=== PATIENT | male | born 2000 | race Two or more races ===

== ENCOUNTER 2022-06-19 01:58 | Emergency (ER) | payer BC, MEDICAID ==
[~2022-06-19] VITALS: Ht 172.7 cm; Wt 120.0 kg
[2022-06-19 02:19] VITALS: BP 106/71
== END 2022-06-19 05:56 | disposition left against medical advice (07) ==
LOC: ER 01:58
DX: R06.02 Shortness of breath (principal); Z53.29 Procedure and treatment not carried out because of patient's decision for other reasons
CPT/HCPCS: 71045

== ENCOUNTER 2022-09-23 19:43 | Emergency (ER) | payer SELFPAY ==
[~2022-09-23] VITALS: Ht 175.3 cm; Wt 55.0 kg
[2022-09-23 20:47] VITALS: BP 113/70
[2022-09-23] MEDS ORDERED: HYDROcodone-ACET 10/325MG TAB PO ONE (22:00)
[2022-09-23] MEDS ORDERED: HYDR-4902 PO (23:05)
[2022-09-23] MEDS ORDERED: IBUP800T26 PO (23:05)
[2022-09-24] MEDS ORDERED: KETOROLAC TROMETH 60MG/2ML VIAL IM ONE (00:30)
== END 2022-09-24 00:32 | disposition home or self-care (01) ==
LOC: ER 19:43
DX: S02.2XXA Fracture of nasal bones, initial encounter for closed fracture (principal); S16.1XXA Strain of muscle, fascia and tendon at neck level, initial encounter; S00.83XA Contusion of other part of head, initial encounter; Y04.2XXA Assault by strike against or bumped into by another person, initial encounter; Y93.89 Activity, other specified; Y92.89 Other specified places as the place of occurrence of the external cause; Y99.8 Other external cause status
CPT/HCPCS: 70450; 70486; 72125

== ENCOUNTER 2023-09-10 17:23 | Emergency (ER) | payer MEDICAID, OTHER ==
[~2023-09-10] VITALS: Ht 175.3 cm; Wt 58.1 kg
[~2023-09-10 17:23] MED LIST: HYDR-4902 PO; IBUP-1455 PO
[2023-09-10 18:38] VITALS: BP 105/69; PULSE 82; RESP 16; TEMP 98.2; O2SAT 98
[2023-09-10] MEDS ORDERED: ALBUAER3 IN (19:11)
== END 2023-09-10 19:16 | disposition home or self-care (01) ==
LOC: ER 17:23
DX: J45.909 Unspecified asthma, uncomplicated (principal); Z76.0 Encounter for issue of repeat prescription

== ENCOUNTER 2023-11-17 16:54 | Emergency (ER) | payer MEDICAID, OTHER ==
[~2023-11-17] VITALS: Ht 175.3 cm; Wt 55.0 kg
[~2023-11-17 16:54] MED LIST changes: +ALBUAER3 IN
[2023-11-17 17:25] VITALS: BP 126/67; PULSE 87; RESP 16; TEMP 98.7; O2SAT 96
[2023-11-17] MEDS ORDERED: ALBUAER3 IN (17:49)
[2023-11-17] MEDS ORDERED: BENZ200C64 PO (17:49)
[2023-11-17] MEDS ORDERED: AZIT-43 PO (17:49)
== END 2023-11-17 17:55 | disposition home or self-care (01) ==
LOC: ER 16:54
DX: J40 Bronchitis, not specified as acute or chronic (principal); F12.10 Cannabis abuse, uncomplicated; Z76.0 Encounter for issue of repeat prescription

== ENCOUNTER 2023-12-11 18:00 | Emergency (ER) | payer OTHER ==
[~2023-12-11] VITALS: Ht 175.3 cm; Wt 54.7 kg
[~2023-12-11 18:00] MED LIST changes: +AZIT-43 PO; +BENZ200C64 PO
[2023-12-11 18:36] VITALS: BP 112/68; PULSE 74; RESP 16; O2SAT 97
== END 2023-12-11 22:59 | disposition left against medical advice (07) ==
LOC: ER 18:00
DX: J45.909 Unspecified asthma, uncomplicated (principal); Z76.0 Encounter for issue of repeat prescription; Z53.21 Procedure and treatment not carried out due to patient leaving prior to being seen by health care provider

== ENCOUNTER 2024-05-29 17:53 | Emergency (ER) | payer OTHER ==
[~2024-05-29 17:53] MED LIST changes: +ALBU108A5 IN; +PRED20TA2 PO
== END 2024-05-29 20:14 | disposition left against medical advice (07) ==
LOC: ER 17:53
DX: Z76.0 Encounter for issue of repeat prescription (principal); Z53.21 Procedure and treatment not carried out due to patient leaving prior to being seen by health care provider

== ENCOUNTER 2024-07-26 00:35 | Emergency (ER) | payer OTHER ==
[~2024-07-26] VITALS: Ht 177.8 cm; Wt 58.5 kg
[2024-07-26 00:54] VITALS: BP 102/74; PULSE 90; RESP 16; O2SAT 97
== END 2024-07-26 04:20 | disposition left against medical advice (07) ==
LOC: ER 00:35
DX: F41.9 Anxiety disorder, unspecified (principal); Z76.0 Encounter for issue of repeat prescription; Z53.21 Procedure and treatment not carried out due to patient leaving prior to being seen by health care provider

== ENCOUNTER 2024-08-29 13:39 | Emergency (ER) | payer MEDICAID, OTHER ==
[~2024-08-29] VITALS: Ht 175.3 cm; Wt 58.4 kg
[2024-08-29 14:21] VITALS: BP 124/73; PULSE 74; RESP 18; TEMP 97.9; O2SAT 99
[2024-08-29] MEDS ORDERED: ALBUAER3 IN (14:25)
[2024-08-29] MEDS ORDERED: MOME1AER8 INH (14:26)
--- NOTE | 2024-08-29 14:26 | ED.PDOC ---
History of Present Illness HPI Comments A 24 YEAR OLD MALE PRESENTS TO THE ED WITH COMPLAINT OF MEDICATION REFILL. PATIENT STATES SHE HAS A HISTORY OF ASTHMA AND USES DULERA AND AN ALBUTEROL INHALER, BUT RECENTLY RAN OUT OF HIS MEDICATION AND WOULD LIKE A REFILL OF THESE 2 MEDICATIONS. PATIENT DENIES FEVER, CHILLS, SHORTNESS OF BREATH, CHEST PAIN, ABDOMINAL PAIN, NAUSEA, VOMITING, HEADACHE, OR OTHER COMPLAINTS. NO OTHER SYMPTOMS OR MODIFYING FACTORS AT THIS TIME. PATIENT IS ALERT, ORIENTED X 4, AND HAS STEADY GAIT. Chief Complaint: Asthma Time Seen by MD: 13:46 Primary Care Provider: NONE Reviewed Notes: Nurses Notes, Medications, Allergies Allergies: Coded Allergies: Ibuprofen (Verified Allergy, Unknown, 12/11/23) Home Meds Active Scripts Mometasone Furoate-Formoterol (Dulera) 1 Aer Aer, 2 PUFF INH BID, #13 GRAMS Prov:MARLIN SIMPSON 08/29/24 Albuterol Sulfate (VENTOLIN MDI) 90 Mcg Ih, 2 PUFF IN Q6HPRN, #1 INH 0 Refills Prov:MARLIN SIMPSON 08/29/24 Prednisone (Prednisone) 20 Mg Tab, 40 MG PO DAILY for 5 Days, #10 MG Prov:TREVA FIGUEROA [facility] 01/04/24 Albuterol Sulfate (Albuterol Sulfate Hfa) 108 Mcg/Act Aer, 108 MCG IN Q4HPRN PRN, #1 AER Prov:TREVA FIGUEROA [facility] 01/04/24 Albuterol Sulfate (VENTOLIN MDI) 90 Mcg Ih, 90 MCG IN Q4HPRN PRN for 7 Days, #1 INH Prov:PEARL BORGES TOXICOLOGIST 11/17/23 Benzonatate (Benzonatate) 200 Mg Cap, 1 CAP PO TID PRN for 10 Days, #30 CAP Prov:PEARL BORGES TOXICOLOGIST 24 Azithromycin (Azithromycin) 250 Mg Tab, 250 MG PO DAILY MDD 500 for 5 Days, #6 TAB 0 Refills 2 TABLETS ORALLY ON DAY ONE, THEN 1 TABLET ORALLY DAILY FOR 4 DAYS Prov:PEARL BORGES TOXICOLOGIST 11/17/23 Hydrocodone-Acetaminophen (Hydrocodone Bitartrate/AC 5-325 mg) 1 Tab Tab, 1 TAB PO QIDP, #20 TAB Prov:[facility] [facility] 09/23/22 Ibuprofen Micronized (Ibuprofen) 800 Mg Tab, 800 MG PO TID, #30 TAB Prov:[facility] PAC 09/23/22 Information Source: Patient Mode of Arrival: Ambulatory Severity: None Timing: Days Duration: Since onset Prehospital treatment: None Medication Refill: For: Other (MEDICATION REFILL FOR ASTHMA MEDICATION) Past Medical History PAST MEDICAL HISTORY: Asthma Surgical History: Denies all surgeries Family History Family History: Reviewed,noncontributory to illness Social History Smoker: Non-Smoker Alcohol: Denies ETOH Use Drugs: Marijuana Lives In: Home Constitutional: denies: chills, diaphoresis, fatigue, fever, malaise, sweats, weakness, others EENTM: denies: blurred vision, double vision, ear bleeding, ear discharge, ear drainage, ear pain, ear ringing, eye pain, eye redness, hearing loss, mouth pain, mouth swelling, nasal discharge, nose bleeding, nose congestion, nose pain, photophobia, tearing, throat pain, throat swelling, voice changes, others Respiratory: denies: cough, hemoptysis, orthopnea, SOB at rest, shortness of breath, SOB with excertion, stridor, wheezing, others Cardiovascular: denies: chest pain, dizzy spells, diaphoresis, Dyspnea on exertion, edema, irregular heart beat, left arm pain, lightheadedness, palpitations, PND, syncope, others Gastrointestinal: denies: abdomen distended, abdominal pain, blood streaked bowels, constipated, diarrhea, dysphagia, difficulty swallowing, hematemesis, melena, nausea, poor appetite, poor fluid intake, rectal bleeding, rectal pain, vomiting, others Genitourinary: denies: burning, dysuria, flank pain, frequency, hematuria, incontinence, penile discharge, penile sore, pain, testicle pain, testicle swelling, urgency, others Neurological: denies: dizziness, fainting, headache, left sided numbness, left sided weakness, numbness, paresthesia, pre-existing deficit, right sided numbness, right sided weakness, seizure, speech problems, tingling, tremors, weakness, others Musculoskeletal: denies: back pain, gout, joint pain, joint swelling, muscle pain, muscle stiffness, neck pain, others Integumetry: denies: bruises, change in color, change in hair/nails, dryness, laceration, lesions, lumps, rash, wounds, others Allergic/Immunocompromised: denies: Difficulty Healing, Frequent Infections, Hives, Itching, others Hematologic/Lymphatic: denies: anemia, blood clots, easy bleeding, easy bruising, swollen glands, others Endocrine: denies: excessive hunger, excessive sweating, excessive thirst, excessive urination, flushing, intolerance to cold, intolerance to heat, unexp lained weight gain, unexplained weight loss, others Psychiatric: denies: anxiety, bipolar disorder, depression, hopeless, panic disorder, schizophrenia, sleepless, suicidal, others All Other Systems: Reviewed and Negative Physical Exam General Appearance: No Apparent Distress, Normal HEENT: Normal ENT Inspection, PERRL/EOMI, Pharynx Normal, TMs Normal Neck: Full Range of Motion, Non-Tender, Normal, Normal Inspection Respiratory: Chest Non-Tender, Lungs Clear, No Accessory Muscle Use, No Resp iratory Distress, Normal Breath Sounds Cardiovascular: No Edema, No JVD, No Murmur, No Gallop, Normal Peripheral Pulses, Regular Rate/Rhythm Breast Exam: Deferred Gastrointestinal: No Organomegaly, Non Tender, No Pulsatile Mass, Normal Bowel Sounds, Soft Genitalia: Deferred Pelvic: Deferred Rectal: Deferred Extremities: No calf tenderness, Normal capillary refill, Normal inspection, Normal range of motion, Non-tender, No pedal edema Musculoskeletal : Apperance: Normal Neurologic: Alert, mass spectroscopist II-XII nml as Tested, No Motor Deficits, Normal Affect, Normal Mood, No Sensory Deficits Cerebellar Function: Normal Reflexes: Normal Skin: Dry, Normal Color, Warm Peripheral Pulses: 2+ carotid (R), 2+ carotid (L) Lymphatic: No Adenopathy Was a procedure done? Was a procedure done?: No Differential Dx Considerations may include: MEDICATION REFILL, HISTORY OF ASTHMA X-Ray, Labs, Meds, VS Vital Signs Date Time Temp Pulse Resp B/P (MAP) Pulse Ox O2 Delivery O2 Flow Rate FiO2 08/29/24 14:21 74 18 99 Room Air 08/29/24 14:21 97.9 74 18 124/73 (90) 99 97.9 08/29/24 13:44 97.9 74 18 124/73 (90) 99 Time of 1ST Reevaluation: 14:30 Reevaluation 1ST: Improved Patient Education/Counseling: Diagnosis, Treatment, Need For Follow Up Family Education/Counseling: Diagnosis, Treatment, Need For Follow Up Medical Screening: No EMC Exist At This Time Departure 1 Departure Time of Disposition: 14:40 Impression: Primary Impression: Encounter for medication refill Additional Impression: History of asthma Disposition: HOME / SELF CARE / HOMELESS Condition: Stable Additional Instructions: FOLLOW-UP WITH PCP IN 1 TO 2 DAYS. TAKE MEDICATIONS PRESCRIBED. RETURN TO ED FOR ANY NEW OR WORSENING SYMPTOMS. e-Prescriptions Mometasone Furoate-Formoterol (Dulera) 1 Aer Aer 2 PUFF INH BID, #13 GRAMS Prov: MARLIN SIMPSON 08/29/24 Albuterol Sulfate (VENTOLIN MDI) 90 Mcg Ih 2 PUFF IN Q6HPRN, #1 INH 0 Refills Prov: MARLIN SIMPSON 08/29/24 Discharged With: Self Critical Care Note Critical Care Time?: No Stability Stability form required: No I personally scribed for MARLIN SIMPSON ([email or web address]) on 08/29/24 at 14:26. Electronically submitted by Ender Mae ([email or web address]). MARLIN SIMPSON Aug 29, 2024 14:26
== END 2024-08-29 14:44 | disposition home or self-care (01) ==
LOC: ER 13:39
DX: J45.909 Unspecified asthma, uncomplicated (principal); F12.90 Cannabis use, unspecified, uncomplicated; Z76.0 Encounter for issue of repeat prescription; Z79.899 Other long term (current) drug therapy

== ENCOUNTER 2024-10-21 12:38 | Emergency (ER) | payer SELFPAY ==
[~2024-10-21] VITALS: Ht 177.8 cm; Wt 57.0 kg
[~2024-10-21 12:38] MED LIST changes: +MOME1AER8 INH
[2024-10-21] MEDS ORDERED: AMOX875T4 PO (19:50)
[2024-10-21] MEDS ORDERED: IBUP-1456 PO (19:50)
--- NOTE | 2024-10-21 19:57 | ED.PDOC ---
Eye-HPI HPI Comments 24-year-old male presents to ER with complaints of bilateral earache pain x3 weeks. Patient reports he has been experiencing bilateral earache pain along with cough and congestion x three weeks. He rates his current bilateral earache pain a 5/10. Denies use of medications for current symptoms. Patient presents to ER ambulatory on arrival, with steady gait, in no distress, with vitals stable. Denies fever, ear drainage, headache, dizziness, nausea/vomiting, shortness of breath, chest pain or any further symptoms/complaints Chief Complaint: Earache Time Seen by MD: 18:45 Primary Care Provider: UNKNOWN Reviewed Notes: Nurses Notes, Medications, Allergies Allergies: Coded Allergies: Ibuprofen (Verified Allergy, Unknown, 12/11/23) Home Meds Active Scripts Ibuprofen (Ibuprofen) 800 Mg Tab, 1 TAB PO TID PRN, #30 TAB 0 Refills Prov:CAROL HERNANDEZ 10/21/24 Amoxicillin & Pot Clavulanate (Amoxicillin/Potassium Cla) 875 Mg Tab, 1 TAB PO BID for 7 Days, #14 TAB 0 Refills Prov:CAROL HERNANDEZ 10/21/24 Mometasone Furoate-Formoterol (Dulera) 1 Aer Aer, 2 PUFF INH BID, #13 GRAMS Prov:MARLIN SIMPSON 08/29/24 Albuterol Sulfate (VENTOLIN MDI) 90 Mcg Ih, 2 PUFF IN Q6HPRN, #1 INH 0 Refills Prov:MARLIN SIMPSON 08/29/24 Prednisone (Prednisone) 20 Mg Tab, 40 MG PO DAILY for 5 Days, #10 MG Prov:TREVA FIGUEROA PAC 01/04/24 Albuterol Sulfate (Albuterol Sulfate Hfa) 108 Mcg/Act Aer, 108 MCG IN Q4HPRN PRN, #1 AER Prov:TREVA FIGUEROA PAC 01/04/24 Albuterol Sulfate (VENTOLIN MDI) 90 Mcg Ih, 90 MCG IN Q4HPRN PRN for 7 Days, #1 INH Prov:PEARL BORGES DIRECTOR [employer] SCIENCES 11/17/23 Benzonatate (Benzonatate) 200 Mg Cap, 1 CAP PO TID PRN for 10 Days, #30 CAP Prov:PEARL BORGES DIRECTOR [employer] 11/17/23 Azithromycin (Azithromycin) 250 Mg Tab, 250 MG PO DAILY MDD 500 for 5 Days, #6 TAB 0 Refills 2 TABLETS ORALLY ON DAY ONE, THEN 1 TABLET ORALLY DAILY FOR 4 DAYS Prov:PEARL BORGES DIRECTOR [employer] 11/17/23 Hydrocodone-Acetaminophen (Hydrocodone Bitartrate/AC 5-325 mg) 1 Tab Tab, 1 TAB PO QIDP, #20 TAB Prov:[facility] 09/23/22 Ibuprofen Micronized (Ibuprofen) 800 Mg Tab, 800 MG PO TID, #30 TAB Prov:[facility] PAC 09/23/22 Information Source: Patient Mode of Arrival: Ambulatory Past Medical History PAST MEDICAL HISTORY: Anxiety, Asthma, Depression Surgical History: Denies all surgeries Family History Family History: Unknown Social History Smoker: Non-Smoker Alcohol: Denies ETOH Use Drugs: Cocaine, Marijuana Lives In: Home Constitutional: denies: chills, diaphoresis, fatigue, fever, malaise, sweats, weakness, others EENTM: reports: others ( STATED IN HPI) Respiratory: reports: others ( STATED IN HPI) Cardiovascular: denies: chest pain, dizzy spells, diaphoresis, Dyspnea on exertion, edema, irregular heart beat, left arm pain, lightheadedness, palpitations, PND, syncope, others Gastrointestinal: denies: abdomen distended, abdominal pain, blood streaked bowels, constipated, diarrhea, dysphagia, difficulty swallowing, hematemesis, melena, nausea, poor appetite, poor fluid intake, rectal bleeding, rectal pain, vomiting, others Genitourinary: denies: burning, dysuria, flank pain, frequency, hematuria, incontinence, penile discharge, penile sore, pain, testicle pain, testicle swelling, urgency, others Neurological: denies: dizziness, fainting, headache, left sided numbness, left sided weakness, numbness, paresthesia, pre-existing deficit, right sided numbness, right sided weakness, seizure, speech problems, tingling, tremors, weakness, others Musculoskeletal: denies: back pain, gout, joint pain, joint swelling, muscle pain, muscle stiffness, neck pain, others Integumetry: denies: bruises, change in color, change in hair/nails, dryness, laceration, lesions, lumps, rash, wounds, others Allergic/Immunocompromised: denies: Difficulty Healing, Frequent Infections, Hives, Itching, others Hematologic/Lymphatic: denies: anemia, blood clots, easy bleeding, easy bruising, swollen glands, others Endocrine: denies: excessive hunger, excessive sweating, excessive thirst, excessive urination, flushing, intolerance to cold, intolerance to heat, unexplained weight gain, unexplained weight loss, others Psychiatric: denies: anxiety, bipolar disorder, depression, hopeless, panic disorder, schizophrenia, sleepless, suicidal, others Physical Exam General Appearance: No Apparent Distress HEENT: PERRL/EOMI, Pharynx Normal, Other (MILD ERYTHEMA/BULGING NOTED TO BILATERAL TMS. REMAINDER BILATERAL EAR EXAM-UNREMARKABLE) Neck: Full Range of Motion, Non-Tender, Normal Respiratory: Chest Non-Tender, Lungs Clear, No Accessory Muscle Use, No Respiratory Distress, Normal Breath Sounds Cardiovascular: No Murmur, No Gallop, Regular Rate/Rhythm Breast Exam: Deferred Gastrointestinal: NOT DONE Genitalia: Deferred Pelvic: Deferred Rectal: Deferred Extremities: Normal capillary refill, Normal range of motion Neurologic: Alert, clinical nursing assistant II-XII nml as Tested, No Motor Deficits, Normal Affect, Normal Mood, No Sensory Deficits Cerebellar Function: Normal Reflexes: Normal Skin: Dry, Normal Color, Warm Peripheral Pulses: 2+ Radial (R), 2+ Radial (L), 2+ Brachial (R), 2+ Brachial (L) Lymphatic: No Adenopathy Was a procedure done? Was a procedure done?: No Sedation Sedation?: No EENT DIFF Eye: N/A Ear: Cerumen Impaction, Foreign Body, Otitis Externa X-Ray, Labs, Meds, VS Vital Signs Date Time Temp Pulse Resp B/P (MAP) Pulse Ox O2 Delivery O2 Flow Rate FiO2 10/21/24 17:25 98.3 90 12 114/68 (83) 97 98.3 10/21/24 12:58 99.0 96 18 122/68 (86) 95 ROCEPHIN 1 G IM ORDERED ADVISED TO DRINK PLENTY OF FLUIDS COCAINE/CANNABIS CESSATION DISCUSSED AND ADVISED ADVISED TO FOLLOW UP WITH PCP IN 1-2 DAYS PATIENT VERBALIZED UNDERSTANDING AND AGREEABLE WITH CURRENT PLAN OF CARE ADVISED TO RETURN TO ER IMMEDIATELY IF SYMPTOMS WORSEN Time of 1ST Reevaluation: 19:22 Reevaluation 1ST: N/A Patient Education/Counseling: Diagnosis, Treatment, Prognosis, Need For Follow Up Family Education/Counseling: No Family Present Departure 1 Departure Time of Disposition: 19:42 Impression: Primary Impression: Otitis media of both ears Qualified Codes: H66.93 - Otitis media, unspecified, bilateral Additional Impression: Upper respiratory infection Qualified Codes: J06.9 - Acute upper respiratory infection, unspecified Disposition: HOME / SELF CARE / HOMELESS Condition: Stable e-Prescriptions Ibuprofen (Ibuprofen) 800 Mg Tab 1 TAB PO TID PRN, #30 TAB 0 Refills Prov: CAROL HERNANDEZ 10/21/24 Amoxicillin & Pot Clavulanate (Amoxicillin/Potassium Cla) 875 Mg Tab 1 TAB PO BID for 7 Days, #14 TAB 0 Refills Prov: CAROL HERNANDEZ 10/21/24 Discharged With: Self Critical Care Note Critical Care Time?: No Stability Stability form required: No Heart Score Heart Score: Heart Score Response (Comments) Value History N/A 0 EKG N/A 0 Age N/A 0 Risk Factors N/A 0 Troponin N/A 0 Total 0 CAROL HERNANDEZ Oct 21, 2024 19:57
[2024-10-21] MEDS: cefTRIAXone SOD 1,000 MG VL IM ONE (20:15)
[2024-10-21] MEDS: LIDOCAINE 1% HCL (LOCAL ANESTH.) INJ 20ML MDV ID ONE (20:17)
[2024-10-21 20:34] VITALS: BP 114/76; PULSE 86; RESP 16; TEMP 97.9; O2SAT 97
== END 2024-10-21 20:34 | disposition home or self-care (01) ==
LOC: ER 12:38
DX: H66.93 Otitis media, unspecified, bilateral (principal); J06.9 Acute upper respiratory infection, unspecified; J45.909 Unspecified asthma, uncomplicated; F41.9 Anxiety disorder, unspecified; F32.A Depression, unspecified; Z88.6 Allergy status to analgesic agent
CPT/HCPCS: 96372; 99283; J0696; J2003

== ENCOUNTER 2024-11-16 18:06 | Emergency (ER) | payer SELFPAY ==
[~2024-11-16] VITALS: Ht 177.8 cm; Wt 57.0 kg
[~2024-11-16 18:06] MED LIST changes: +AMOX875T4 PO; +IBUP-1456 PO
[2024-11-16 22:46] VITALS: BP 112/65; TEMP 98
[2024-11-16 22:59] VITALS: PULSE 52; RESP 18; O2SAT 96
--- NOTE | 2024-11-16 23:00 | ED.PDOC ---
SOB-HPI HPI Comments This is a 24-year-old male chief complaint shortness of breath. PT STATES HE H AD AN ASTHMA FLARE UP TODAY, SOB, WHEEZING AND COUGH STATES 'OUT OF DULERA" SMALL AMT OF PHLEGM, LUNGS CLEAR AT THIS TIME, NO WHEEZING. Denies difficulty breathing, fever, or chills Chief Complaint: Shortness of Breath Time Seen by MD: 21:58 Primary Care Provider: NONE Reviewed notes: Nurses Notes, Medications, Allergies Information Source: Patient Mode of Arrival: Ambulatory Past Medical History PAST MEDICAL HISTORY: Anxiety, Asthma, Depression Surgical History: Denies all surgeries Family History Family History: Unknown Social History Smoker: Non-Smoker Alcohol: Denies ETOH Use Drugs: Cocaine, Marijuana Lives In: Home Constitutional: denies: chills, diaphoresis, fatigue, fever, malaise, sweats, weakness, others EENTM: denies: blurred vision, double vision, ear bleeding, ear discharge, ear drainage, ear pain, ear ringing, eye pain, eye redness, hearing loss, mouth pain, mouth swelling, nasal discharge, nose bleeding, nose congestion, nose pain, photophobia, tearing, throat pain, throat swelling, voice changes, others Respiratory: reports: shortness of breath, wheezing; denies: cough, hemoptysis, orthopnea, SOB at rest, SOB with excertion, stridor, others Cardiovascular: denies: chest pain, dizzy spells, diaphoresis, Dyspnea on exertion, edema, irregular heart beat, left arm pain, lightheadedness, palpitations, PND, syncope, others Gastrointestinal: denies: abdomen distended, abdominal pain, blood streaked bowels, constipated, diarrhea, dysphagia, difficulty swallowing, hematemesis, melena, nausea, poor appetite, poor fluid intake, rectal bleeding, rectal pain, vomiting, others Genitourinary: denies: burning, dysuria, flank pain, frequency, hematuria, incontinence, penile discharge, penile sore, pain, testicle pain, testicle swelling, urgency, others Neurological: denies: dizziness, fainting, headache, left sided numbness, left sided weakness, numbness, paresthesia, pre-existing deficit, right sided numbness, right sided weakness, seizure, speech problems, tingling, tremors, weakness, others Musculoskeletal: denies: back pain, gout, joint pain, joint swelling, muscle pain, muscle stiffness, neck pain, others Integumetry: denies: bruises, change in color, change in hair/nails, dryness, laceration, lesions, lumps, rash, wounds, others Allergic/Immunocompromised: denies: Difficulty Healing, Frequent Infections, Hives, Itching, others Hematologic/Lymphatic: denies: anemia, blood clots, easy bleeding, easy bruising, swollen glands, others Endocrine: denies: excessive hunger, excessive sweating, excessive thirst, excessive urination, flushing, intolerance to cold, intolerance to heat, unexplained weight gain, unexplained weight loss, others Psychiatric: denies: anxiety, bipolar disorder, depression, hopeless, panic disorder, schizophrenia, sleepless, suicidal, others Physical Exam General Appearance: No Apparent Distress, Normal HEENT: Normal ENT Inspection, Pharynx Normal, TMs Normal Neck: Full Range of Motion, Non-Tender Respiratory: Chest Non-Tender, Lungs Clear, No Accessory Muscle Use, No Respiratory Distress, Normal Breath Sounds Cardiovascular: No Edema, No JVD, No Murmur, No Gallop, Normal Peripheral Pulses, Regular Rate/Rhythm Breast Exam: Deferred Gastrointestinal: No Organomegaly, Non Tender, No Pulsatile Mass, Normal Bowel Sounds, Soft Genitalia: Deferred Pelvic: Deferred Rectal: Deferred Extremities: Normal capillary refill, Normal inspection, Normal range of motion, Non-tender, No pedal edema Musculoskeletal : Apperance: Normal Neurologic: Alert, shredder operator II-XII nml as Tested, No Motor Deficits, Normal Affect, Normal Mood, No Sensory Deficits Cerebellar Function: Normal Reflexes: Normal Skin: Dry, Normal Color, Warm Lymphatic: No Adenopathy Was a procedure done? Was a procedure done?: No Differential Dx Differential Diagnosis: Asthma, Bronchitis, Pneumonia X-Ray, Labs, Meds, VS Vital Signs Date Time Temp Pulse Resp B/P (MAP) Pulse Ox O2 Delivery O2 Flow Rate FiO2 11/16/24 22:59 52 18 96 Room Air 11/16/24 22:46 98.0 80 14 112/65 (81) 97 98.0 11/16/24 18:41 18 96 Room Air* 0 21 11/16/24 18:20 98.1 2 18 115/61 (79) 96 X-Ray, Labs, Meds, VS Comment Refill of Dulera sent to pharmacy. Azithromycin prescribing hold advised to start in 2 days if symptoms persist. Follow up with his PCP in 2-3 days as necessary increase fluids with electrolytes [id number] Tylenol or Motrin as needed for fever per labeled dosing instructions ER return precautions given patient agrees with discharge plan of care. Time of 1ST Reevaluation: 23:00 Reevaluation 1ST: Improved Patient Education/Counseling: Diagnosis, Treatment, Prognosis, Need For Follow Up Family Education/Counseling: No Family Present Departure 1 Departure Time of Disposition: 23:18 Impression: Primary Impression: Acute asthma exacerbation Qualified Codes: J45.901 - Unspecified asthma with (acute) exacerbation Disposition: HOME / SELF CARE / HOMELESS Condition: Stable e-Prescriptions Mometasone Furoate-Formoterol (Dulera) 1 Aer Aer 2 PUFF INH BID for 30 Days, #13 GRAMS Prov: SARAN COX 11/16/24 Azithromycin (Azithromycin) 250 Mg Tab 250 MG PO DAILY MDD 500 for 5 Days, #6 TAB 0 Refills 2 TABLETS ORALLY ON DAY ONE, THEN 1 TABLET ORALLY DAILY FOR 4 DAYS Prov: SARAN COX 11/16/24 Discharged With: Self Critical Care Note Critical Care Time?: No Stability Stability form required: No Heart Score Heart Score: Heart Score Response (Comments) Value History N/A 0 EKG N/A 0 Age <45 0 Risk Factors N/A 0 Troponin N/A 0 Total 0 SARAN COX Nov 16, 2024 23:00
[2024-11-16] MEDS ORDERED: MOME1AER3 INH (23:26)
[2024-11-16] MEDS ORDERED: AZIT-43 PO (23:26)
== END 2024-11-17 | disposition home or self-care (01) ==
LOC: ER 18:08
DX: J45.901 Unspecified asthma with (acute) exacerbation (principal); F41.9 Anxiety disorder, unspecified; F32.A Depression, unspecified

== ENCOUNTER 2025-02-11 17:57 | Emergency (ER) | payer MEDICAID, OTHER ==
[~2025-02-11] VITALS: Ht 177.8 cm; Wt 57.0 kg
[~2025-02-11 17:57] MED LIST changes: +MOME1AER3 INH
[2025-02-11] MEDS ORDERED: ALBU108A5 IN (18:14)
--- NOTE | 2025-02-11 18:14 | ED.PDOC ---
SOB-HPI HPI Comments This is a 24-year-old asthmatic male presents in the ED for medication refill. Patient reports history of asthma currently released from longterm and does not have his medications. Currently asking refill for albuterol and Dulera. Denies any symptoms at this time denies wheezing, chest pain, shortness breath, fever or chills. Time Seen by MD: 18:07 Primary Care Provider: NONE Reviewed notes: Nurses Notes, Medications, Allergies Information Source: Patient Past Medical History PAST MEDICAL HISTORY: Anxiety, Asthma, Depression Surgical History: Denies all surgeries Family History Family History: Unknown Social History Smoker: Non-Smoker Alcohol: Denies ETOH Use Drugs: Cocaine, Marijuana Lives In: Home Constitutional: denies: chills, diaphoresis, fatigue, fever, malaise, sweats, weakness, others EENTM: denies: blurred vision, double vision, ear bleeding, ear discharge, ear drainage, ear pain, ear ringing, eye pain, eye redness, hearing loss, mouth pain, mouth swelling, nasal discharge, nose bleeding, nose congestion, nose pain, photophobia, tearing, throat pain, throat swelling, voice changes, others Respiratory: denies: cough, hemoptysis, orthopnea, SOB at rest, shortness of breath, SOB with excertion, stridor, wheezing, others Cardiovascular: denies: chest pain, dizzy spells, diaphoresis, Dyspnea on exertion, edema, irregular heart beat, left arm pain, lightheadedness, palpitations, PND, syncope, others Gastrointestinal: denies: abdomen distended, abdominal pain, blood streaked bowels, constipated, diarrhea, dysphagia, difficulty swallowing, hematemesis, melena, nausea, poor appetite, poor fluid intake, rectal bleeding, rectal pain, vomiting, others Genitourinary: denies: burning, dysuria, flank pain, frequency, hematuria, incontinence, penile discharge, penile sore, pain, testicle pain, testicle swelling, urgency, others Neurological: denies: dizziness, fainting, headache, left sided numbness, left sided weakness, numbness, paresthesia, pre-existing deficit, right sided numbness, right sided weakness, seizure, speech problems, tingling, tremors, weakness, others Musculoskeletal: denies: back pain, gout, joint pain, joint swelling, muscle pain, muscle stiffness, neck pain, others Integumetry: denies: bruises, change in color, change in hair/nails, dryness, laceration, lesions, lumps, rash, wounds, others Allergic/Immunocompromised: denies: Difficulty Healing, Frequent Infections, Hives, Itching, others Hematologic/Lymphatic: denies: anemia, blood clots, easy bleeding, easy bruising, swollen glands, others Endocrine: denies: excessive hunger, excessive sweating, excessive thirst, excessive urination, flushing, intolerance to cold, intolerance to heat, unexplained weight gain, unexplained weight loss, others Psychiatric: denies: anxiety, bipolar disorder, depression, hopeless, panic disorder, schizophrenia, sleepless, suicidal, others Physical Exam General Appearance: No Apparent Distress, Normal HEENT: Normal ENT Inspection, Pharynx Normal, TMs Normal Neck: Full Range of Motion, Non-Tender Respiratory: Chest Non-Tender, Lungs Clear, No Accessory Muscle Use, No Respira tory Distress, Normal Breath Sounds Cardiovascular: No Edema, No JVD, No Murmur, No Gallop, Normal Peripheral Pulses, Regular Rate/Rhythm Breast Exam: Deferred Gastrointestinal: No Organomegaly, Non Tender, No Pulsatile Mass, Normal Bowel Sounds, Soft Genitalia: Deferred Pelvic: Deferred Rectal: Deferred Extremities: Normal capillary refill, Normal inspection, Normal range of motion, Non-tender, No pedal edema Musculoskeletal : Apperance: Normal Neurologic: Alert, senior game advisor II-XII nml as Tested, No Motor Deficits, Normal Affect, Normal Mood, No Sensory Deficits Cerebellar Function: Normal Reflexes: Normal Skin: Dry, Normal Color, Warm Lymphatic: No Adenopathy Was a procedure done? Was a procedure done?: No Differential Dx Differential Diagnosis: Asthma, Bronchitis X-Ray, Labs, Meds, VS Comment Patient was medications script to the pharmacy on file. Advised him to follow up with the PCP for further refills. ER return precautions given patient indicates Time of 1ST Reevaluation: 18:11 Reevaluation 1ST: Improved Patient Education/Counseling: Diagnosis, Treatment, Prognosis, Need For Follow Up Family Education/Counseling: No Family Present Departure 1 Departure Time of Disposition: 18:12 Impression: Primary Impression: Encounter for medication refill Disposition: 01 HOME / SELF CARE / HOMELESS Condition: Stable e-Prescriptions Mometasone Furoate-Formoterol (Dulera) 1 Aer Aer 2 PUFF INH BID for 30 Days, #1 INHALER Prov: SARAN COX [employer]IGNMENT SPECIALIST 02/11/25 Albuterol Sulfate (Albuterol Sulfate Hfa) 108 Mcg/Act Aer 108 MCG IN Q4HPRN PRN, #1 AER Prov: KENNYSARAN [employer] WHE[employer] ALIGNMENT SPECIALIST 02/11/25 Discharged With: Self Critical Care Note Critical Care Time?: No Stability Stability form required: No Heart Score Heart Score: Heart Score Response (Comments) Value History N/A 0 EKG N/A 0 Age <45 0 Risk Factors N/A 0 Troponin N/A 0 Total 0 KENNYSARAN [employer] WHE[employer] ALIGNMENT SPECIALIST Feb 11, 2025 18:14
[2025-02-11 19:30] VITALS: BP 110/71; PULSE 88; RESP 16; TEMP 98.5; O2SAT 97
== END 2025-02-11 19:43 | disposition home or self-care (01) ==
LOC: ER 18:04
DX: J45.909 Unspecified asthma, uncomplicated (principal); F41.9 Anxiety disorder, unspecified; F32.A Depression, unspecified; Z76.0 Encounter for issue of repeat prescription

== ENCOUNTER 2025-02-28 19:06 | Emergency (ER) | payer MEDICAID ==
[~2025-02-28] VITALS: Ht 175.3 cm; Wt 55.7 kg
[2025-02-28 22:37] VITALS: BP 102/56; PULSE 83; RESP 16; TEMP 98.1; O2SAT 98
[2025-02-28] MEDS ORDERED: BUSP5TAB51 PO (22:40)
--- NOTE | 2025-02-28 22:40 | ED.PDOC ---
Psychiatric HPI Comments Pt presents to the ER due to medication refill. Pt reports he "ran out" of his Buspar x4 days ago. Pt states he is feeling anxious. Pt denies SI/HI, V/A hallucinations. Chief Complaint: Anxiety Time Seen by MD: 19:20 Primary Care Provider: NONE Reviewed Notes: Nurses Notes, Medications, Allergies Information Source: Patient Mode of Arrival: Ambulatory Past Medical History PAST MEDICAL HISTORY: Anxiety, Asthma, Depression Surgical History: Denies all surgeries Family History Family History: Unknown Social History Smoker: Non-Smoker Alcohol: Denies ETOH Use Drugs: Cocaine, Marijuana Lives In: Home Constitutional: denies: chills, diaphoresis, fatigue, fever, malaise, sweats, weakness, others EENTM: denies: blurred vision, double vision, ear bleeding, ear discharge, ear drainage, ear pain, ear ringing, eye pain, eye redness, hearing loss, mouth pain, mouth swelling, nasal discharge, nose bleeding, nose congestion, nose pain, photophobia, tearing, throat pain, throat swelling, voice changes, others Respiratory: denies: cough, hemoptysis, orthopnea, SOB at rest, shortness of breath, SOB with excertion, stridor, wheezing, others Cardiovascular: denies: chest pain, dizzy spells, diaphoresis, Dyspnea on exertion, edema, irregular heart beat, left arm pain, lightheadedness, palpitations, PND, syncope, others Gastrointestinal: denies: abdomen distended, abdominal pain, blood streaked bowels, constipated, diarrhea, dysphagia, difficulty swallowing, hematemesis, melena, nausea, poor appetite, poor fluid intake, rectal bleeding, rectal pain, vomiting, others Genitourinary: denies: burning, dysuria, flank pain, frequency, hematuria, incontinence, penile discharge, penile sore, pain, testicle pain, testicle swelling, urgency, others Neurological: denies: dizziness, fainting, headache, left sided numbness, left sided weakness, numbness, paresthesia, pre-existing deficit, right sided num bness, right sided weakness, seizure, speech problems, tingling, tremors, weakness, others Musculoskeletal: denies: back pain, gout, joint pain, joint swelling, muscle pain, muscle stiffness, neck pain, others Integumetry: denies: bruises, change in color, change in hair/nails, dryness, laceration, lesions, lumps, rash, wounds, others Allergic/Immunocompromised: denies: Difficulty Healing, Frequent Infections, Hives, Itching, others Hematologic/Lymphatic: denies: anemia, blood clots, easy bleeding, easy bruising, swollen glands, others Endocrine: denies: excessive hunger, excessive sweating, excessive thirst, excessive urination, flushing, intolerance to cold, intolerance to heat, unexplained weight gain, unexplained weight loss, others Psychiatric: denies: anxiety, bipolar disorder, depression, hopeless, panic disorder, schizophrenia, sleepless, suicidal, others Physical Exam General Appearance: No Apparent Distress, Normal HEENT: Pharynx Normal Neck: Full Range of Motion, Non-Tender Respiratory: Lungs Clear, No Respiratory Distress, Normal Breath Sounds Cardiovascular: No Edema, No JVD, No Murmur, No Gallop, Normal Peripheral Pulses, Regular Rate/Rhythm Breast Exam: Deferred Gastrointestinal: No Organomegaly, Non Tender, No Pulsatile Mass, Normal Bowel Sounds, Soft Genitalia: Deferred Pelvic: Deferred Rectal: Deferred Extremities: Normal capillary refill, Normal inspection, Normal range of motion, Non-tender, No pedal edema Musculoskeletal : Apperance: Normal Neurologic: Alert, director of accounts receivable II-XII nml as Tested, No Motor Deficits, Normal Affect, Normal Mood, No Sensory Deficits Cerebellar Function: Normal Reflexes: Normal Skin: Dry, Normal Color, Warm Lymphatic: No Adenopathy Was a procedure done? Was a procedure done?: No Psych Differential Dx Psych. Differential Dx: Anxiety, Panic Disorder OD Differential Dx: Depression X-Ray, Labs, Meds, VS Vital Signs Date Time Temp Pulse Resp B/P (MAP) Pulse Ox O2 Delivery O2 Flow Rate FiO2 02/28/25 22:37 98.1 83 16 102/56 (71) 98 98.1 02/28/25 22:37 83 16 98 Room Air 02/28/25 19:23 97.4 83 16 117/82 (94) 96 97.4 X-Ray, Labs, Meds, VS Comment PATIENT IS MEDICATION REFILLED BASED ON PROVIDED PRESCRIPTION. SCRIPT BUSPAR 5 MG TWICE DAILY ADVISED TO TAKE MEDICATIONS PRESCRIBED SIDE EFFECTS DISCUSSED. FUTURE REFILLS TO BE REFILLED BY HIS PRIMARY CARE PATIENT INDICATED UNDERSTANDING AND AGREES WITH DISCHARGE PLAN OF CARE RETURN PRECAUTIONS GIVEN Time of 1ST Reevaluation: 21:30 Reevaluation 1ST: Unchanged Time of 2ND Reevaluation: 22:30 Reevaluation 2ND: Improved Patient Education/Counseling: Diagnosis, Treatment, Prognosis, Need For Follow Up Family Education/Counseling: No Family Present Departure 1 Departure Time of Disposition: 22:37 Impression: Primary Impression: Encounter for medication refill Additional Impression: Anxiety Disposition: 01 HOME / SELF CARE / HOMELESS Condition: Stable e-Prescriptions Buspirone Hcl (Buspirone Hcl) 5 Mg Tab 1 TAB PO BID PRN for 10 Days, #20 TAB Prov: SARAN COX 02/28/25 Discharged With: Self Critical Care Note Critical Care Time?: No Stability Stability form required: SARAN Amador February 28, 2025 22:40
== END 2025-02-28 23:02 | disposition home or self-care (01) ==
LOC: ER 19:06
DX: F41.9 Anxiety disorder, unspecified (principal); J45.909 Unspecified asthma, uncomplicated; Z76.0 Encounter for issue of repeat prescription

== ENCOUNTER 2025-04-24 13:31 | Emergency (ER) | payer MEDICAID, OTHER ==
[~2025-04-24] VITALS: Ht 177.8 cm; Wt 54.7 kg
--- NOTE | 2025-04-24 13:42 | ED.PDOC ---
HPI (NEURO) HPI Comments A 24 YEAR OLD MALE PRESENTS TO THE ED WITH COMPLAINT OF HEADACHE. PATIENT STATES HE HAS BEEN EXPERIENCING A GENERALIZED HEADACHE FOR THE PAST 3 DAYS. PATIENT NOTES HE HAS BEEN UNDER STRESS RECENTLY. PATIENT RATES THE SEVERITY OF HIS PAIN A 6/10 AT THIS TIME. PATIENT DENIES VISION CHANGES, SLURRED SPEECH, ONE-SIDED WEAKNESS, FACIAL DROOP, FEVER, CHILLS, SHORTNESS OF BREATH, CHEST PAIN, ABDOMINAL PAIN, NAUSEA, VOMITING, OR OTHER COMPLAINTS. NO OTHER SYMPTOMS OR MODIFYING FACTORS AT THIS TIME. PATIENT IS ALERT, ORIENTED X 4, AND HAS STEADY GAIT. Chief Complaint: Headache Time Seen by MD: 13:34 Primary Care Provider: NONE Reviewed Notes: Nurses Notes, Medications, Allergies Information Source: Patient Mode of Arrival: Ambulatory Severity: Moderate Headache Severity: Moderate Timing: Days Duration: Since onset, Days Prehospital treatment: None Headache Quality: Aching Headache Location: Generalized Onset: At rest Circumstances: Recent stress Symptoms: Other (HEADACHE) History of: None Modifying factors: Nothing Associated Signs and Symptoms: Headache Past Medical History PAST MEDICAL HISTORY: Anxiety, Asthma, Depression Surgical History: Denies all surgeries Family History Family History: Reviewed,noncontributory to illness Social History Smoker: Non-Smoker Alcohol: Denies ETOH Use Drugs: Cocaine, Marijuana Lives In: Home Constitutional: denies: chills, diaphoresis, fatigue, fever, malaise, sweats, weakness, others EENTM: reports: ear ringing, nose congestion; denies: blurred vision, double vision, ear bleeding, ear discharge, ear drainage, ear pain, eye pain, eye redness, hearing loss, mouth pain, mouth swelling, nasal discharge, nose bleeding, nose pain, photophobia, tearing, throat pain, throat swelling, voice changes, others Respiratory: denies: cough, hemoptysis, orthopnea, SOB at rest, shortness of breath, SOB with excertion, stridor, wheezing, others Cardiovascular: denies: chest pain, dizzy spells, diaphoresis, Dyspnea on exertion, edema, irregular heart beat, left arm pain, lightheadedness, palpita tions, PND, syncope, others Gastrointestinal: denies: abdomen distended, abdominal pain, blood streaked ghislaine wels, constipated, diarrhea, dysphagia, difficulty swallowing, hematemesis, melena, nausea, poor appetite, poor fluid intake, rectal bleeding, rectal pain, vomiting, others Genitourinary: denies: burning, dysuria, flank pain, frequency, hematuria, incontinence, penile discharge, penile sore, pain, testicle pain, testicle swelling, urgency, others Neurological: reports: headache; denies: dizziness, fainting, left sided numbness, left sided weakness, numbness, paresthesia, pre-existing deficit, right sided numbness, right sided weakness, seizure, speech problems, tingling, tremors, weakness, others Musculoskeletal: denies: back pain, gout, joint pain, joint swelling, muscle pain, muscle stiffness, neck pain, others Integumetry: denies: bruises, change in color, change in hair/nails, dryness, laceration, lesions, lumps, rash, wounds, others Allergic/Immunocompromised: denies: Difficulty Healing, Frequent Infections, Hives, Itching, others Hematologic/Lymphatic: denies: anemia, blood clots, easy bleeding, easy bruising, swollen glands, others Endocrine: denies: excessive hunger, excessive sweating, excessive thirst, excessive urination, flushing, intolerance to cold, intolerance to heat, unexplained weight gain, unexplained weight loss, others Psychiatric: denies: anxiety, bipolar disorder, depression, hopeless, panic dis order, schizophrenia, sleepless, suicidal, others All Other Systems: Reviewed and Negative Physical Exam General Appearance: No Apparent Distress, Normal HEENT: PERRL/EOMI, Pharynx Normal, Sinuses (TENDERNESS MAXILLARY SINUSES WITH POST NASAL DRIP. ), TM Abnormal (R) (DULL AND MILD EFFUSION OF RIGHT EAR CANAL. ) Neck: Full Range of Motion, Non-Tender, Normal, Normal Inspection Respiratory: Chest Non-Tender, Lungs Clear, No Accessory Muscle Use, No Respiratory Distress, Normal Breath Sounds Cardiovascular: No Edema, No JVD, No Murmur, No Gallop, Normal Peripheral Pulses, Regular Rate/Rhythm Breast Exam: Deferred Gastrointestinal: No Organomegaly, Non Tender, No Pulsatile Mass, Normal Bowel Sounds, Soft Genitalia: Deferred Pelvic: Deferred Rectal: Deferred Extremities: No calf tenderness, Normal capillary refill, Normal inspection, Normal range of motion, Non-tender, No pedal edema Musculoskeletal : Apperance: Normal Neurologic: Alert, police commissioner II-XII nml as Tested, No Motor Deficits, Normal Affect, Normal Mood, No Sensory Deficits Cerebellar Function: Normal Reflexes: Normal Skin: Dry, Normal Color, Warm Peripheral Pulses: 2+ carotid (R), 2+ carotid (L) Lymphatic: No Adenopathy Was a procedure done? Was a procedure done?: No Differential Diagnosis (SZ) Seizure: N/A General Weakness: N/A Headache: Cluster, Migraine, Intracerebral Hemorrhage, Mass Lesion, Sinusitis X-Ray, Labs, Meds, VS Vital Signs Date Time Temp Pulse Resp B/P (MAP) Pulse Ox O2 Delivery O2 Flow Rate FiO2 04/24/25 14:59 98.1 62 18 107/62 (77) 98 98.1 04/24/25 14:59 62 18 98 Room Air 04/24/25 13:37 98.2 96 16 106/67 (80) 96 98.2 EXAM: CT HEAD WITHOUT CONTRAST INDICATION: HEADACHE TECHNIQUE: CT of the head without intravenous contrast. Radiation Dose Information: CT Dose: CTDI volume is 56.04 mGy. Dose-length product is 992.03 mGy*cm The dose indicators for CT are the volume Computed Tomography (CT) Dose Index (CTDIvol) and the Dose Length Product (DLP), and are measured in units of mGy and mGy-cm, respectively. These indicators are not patient dose, but values generated from the CT scanner acquisition factors. The report includes radiation exposure data for exposures received during this examination. COMPARISON: None FINDINGS: There is no evidence of acute intracranial hemorrhage, extra-axial collection, mass effect, midline shift, herniation or hydrocephalus. The ventricles, sulci and cisterns are age appropriate. The atkinson-white differentiation is intact. Patchy periventricular and subcortical white matter hypoattenuation is nonspec ific but may be related to small vessel ischemic disease. Opacified maxillary ethmoid frontal and sphenoid sinuses bilaterally consistent with pansinusitis. The mastoid air cells are clear. The surrounding soft tissues and osseous structures are unremarkable. IMPRESSION: 1. No acute intracranial abnormality. 2. Pansinusitis ATED BY: BLACK AGUILAR Jr., DO DICTATED DATE/TIME: 04/24/251427 SIGNED BY: BLACK AGUILAR Jr., SIGNED DATE/TIME: 04/24/251427 CC: X-Ray, Labs, Meds, VS Comment EXTERNAL MEDICAL RECORDS REVIEWED: [NONE] INDEPENDENT HISTORIANS: [NONE] SOCIAL DETERMINANTS OF HEALTH: [NONE] LABS ORDERED: NONE REVIEWED AND INTERPRETED RESULTS: NONE IMAGING ORDERED: CT BRAIN TREATMENTS ORDERED: NONE PROCEDURES PERFORMED: NONE CRITICAL CARE TIME: NONE I HAVE DISCUSSED THE PATIENT WITH THE ATTENDING PHYSICIAN DR. GIBBS AND HE AGREES WITH THE PATIENT'S PLAN OF CARE AND DISPOSITION. BASED ON HISTORY OF PRESENT ILLNESS, AND PHYSICAL EXAM, PATIENT WILL BE DISCHARGED HOME. DISCUSSED PLAN FOR DISCHARGE HOME WITH RX [AUGMENTIN AND PREDNISONE]. MEDICATION WARNINGS GIVEN. SHARED DECISION MAKING: PATIENT INSTRUCTED TO FOLLOW UP WITH PRIMARY CARE PROVIDER IN 1-2 DAYS FOR RE-EVALUATION OF SYMPTOMS. PATIENT VERBALIZES UNDERSTANDING TO RETURN TO ED FOR NEW OR WORSENING SYMPTOMS OR IF FOLLOW UP WITH PCP CANNOT BE OBTAINED. PATIENT FEELS COMFORTABLE GOING HOME AT THIS TIME. ALL QUESTIONS ADDRESSED AT TIME OF DISCHARGE. Images Reviewed?: Images reviewed and evaluated by me Time of 1ST Reevaluation: 15:00 Reevaluation 1ST: Improved Patient Education/Counseling: Diagnosis, Treatment, Need For Follow Up Family Education/Counseling: Diagnosis, Treatment, Need For Follow Up Medical Screening: No EMC Exist At This Time Departure 1 Departure Time of Disposition: 15:00 Impression: Primary Impression: Acute pansinusitis Qualified Codes: J01.40 - Acute pansinusitis, unspecified Additional Impression: Sinus headache Disposition: 01 HOME / SELF CARE / HOMELESS Condition: Stable Additional Instructions: FOLLOW-UP WITH PCP IN 1 TO 2 DAYS. TAKE MEDICATIONS PRESCRIBED. RETURN TO ED FOR ANY NEW OR WORSENING SYMPTOMS. e-Prescriptions Naproxen (Naproxen) 500 Mg Tab 500 MG PO BID, #30 TAB Prov: MARLIN SIMPSON 04/24/25 Methylprednisolone (Medrol Dosepak) 4 Mg Van 4 MG PO UD, #21 TAB UAD Prov: MARLIN SIMPSON 04/24/25 Amoxicillin & Pot Clavulanate (AUGMENTIN TABLET) 875 Mg Tb 875 MG PO BID, #28 TAB Prov: MARLIN SIMPSON 04/24/25 Discharged With: Self Critical Care Note Critical Care Time?: No Stability Stability form required: No I personally scribed for MARLIN SIMPSON ([email or web address]) on 04/24/25 at 13:42. Electronically submitted by Ender Mae ([email or web address]). I personally scribed for MARLIN SIMPSON ([email or web address]) on 04/24/25 at 14:44. Electronically submitted by Ender Mae ([email or web address]). MARLIN SIMPSON Apr 24, 2025 13:42
--- NOTE | 2025-04-24 14:31 | DVH ---
EXAM: CT HEAD WITHOUT CONTRAST INDICATION: HEADACHE TECHNIQUE: CT of the head without intravenous contrast. Radiation Dose Information: CT Dose: CTDI volume is 56.04 mGy. Dose-length product is 992.03 mGy*cm The dose indicators for CT are the volume Computed Tomography (CT) Dose Index (CTDIvol) and the Dose Length Product (DLP), and are measured in units of mGy and mGy-cm, respectively. These indicators are not patient dose, but values generated from the CT scanner acquisition factors. The report includes radiation exposure data for exposures received during this examination. COMPARISON: None FINDINGS: There is no evidence of acute intracranial hemorrhage, extra-axial collection, mass effect, midline s hift, herniation or hydrocephalus. The ventricles, sulci and cisterns are age appropriate. The atkinson-white differentiation is intact. Patchy periventricular and subcortical white matter hypoattenuation is nonspecific but may be related to small vessel ischemic disease. Opacified maxillary ethmoid frontal and sphenoid sinuses bilaterally consistent with pansinusitis. T he mastoid air cells are clear. The surrounding soft tissues and osseous structures are unremarkable. IMPRESSION: 1. No acute intracranial abnormality. 2. Pansinusitis
[2025-04-24] MEDS ORDERED: AUG875T PO (14:51)
[2025-04-24] MEDS ORDERED: NAPR-746 PO (14:51)
[2025-04-24] MEDS ORDERED: METH4PAK PO (14:51)
[2025-04-24 14:59] VITALS: BP 107/62; PULSE 62; RESP 18; TEMP 98.1; O2SAT 98
== END 2025-04-24 15:03 | disposition home or self-care (01) ==
LOC: ER 13:31
DX: J01.40 Acute pansinusitis, unspecified (principal); G44.89 Other headache syndrome; F12.90 Cannabis use, unspecified, uncomplicated; F19.90 Other psychoactive substance use, unspecified, uncomplicated; J45.909 Unspecified asthma, uncomplicated; F41.9 Anxiety disorder, unspecified; F32.A Depression, unspecified
CPT/HCPCS: 70450

== ENCOUNTER 2025-05-16 15:50 | Emergency (ER) | payer SELFPAY ==
[~2025-05-16] VITALS: Ht 175.3 cm; Wt 55.0 kg
[~2025-05-16 15:50] MED LIST changes: +AUG875T PO; +METH4PAK PO; +NAPR-746 PO
--- NOTE | 2025-05-16 16:28 | ED.PDOC ---
History of Present Illness HPI Comments 24 y/o M presents with c/c throat pain and medication refill inquiry. Significant history of asthma. Patient reports developing throat pain, last night, following recent known sick contact exposure through a coworker at his place of occupation. Additionally, patient states on running out his asthma inhaler medication, this morning, and is unable to obtain a refill through his Primary Care Provider's office. No further pertinent history endorsed. Denies any fever, chills, nausea, vomiting, or further associated symptoms. Chief Complaint: Asthma Time Seen by MD: 16:20 Primary Care Provider: NONE Reviewed Notes: Nurses Notes, Medications, Allergies Allergies: Coded Allergies: Ibuprofen (Verified Allergy, Intermediate, 10/21/24) Per pateint only allergic to "Advil rapid relief" with reaction of mild rash. Patient states he does take ibuprofen without any reaction Home Meds Active Scripts Azithromycin (Zithromax) 500 Mg Tab, 1 TAB PO DAILY for 3 Days, #3 TAB Prov:HASMUKH GONZALEZ MD 05/16/25 Albuterol Sulfate (VENTOLIN MDI) 90 Mcg Ih, 90 MCG IN TID for 15 Days, #1 INH Prov:HASMUKH GONZALEZ MD 05/16/25 Naproxen (Naproxen) 500 Mg Tab, 500 MG PO BID, #30 TAB Prov:MARLIN SIMPSON 04/24/25 Methylprednisolone (Medrol Dosepak) 4 Mg Van, 4 MG PO UD, #21 TAB UAD Prov:MARLIN SIMPSON 04/24/25 Amoxicillin & Pot Clavulanate (AUGMENTIN TABLET) 875 Mg Tb, 875 MG PO BID, #28 TAB Prov:MARLIN SIMPSON 04/24/25 Albuterol Sulfate (Albuterol Sulfate Hfa) 108 Mcg/Act Aer, 108 MCG IN Q4HPRN PRN, #1 AER Prov:SARAN COX 02/11/25 Mometasone Furoate-Formoterol (Dulera) 1 Aer Aer, 2 PUFF INH BID for 30 Days, #13 GRAMS Prov:SARAN COX 11/16/24 Azithromycin (Azithromycin) 250 Mg Tab, 250 MG PO DAILY MDD 500 for 5 Days, #6 TAB 0 Refills 2 TABLETS ORALLY ON DAY ONE, THEN 1 TABLET ORALLY DAILY FOR 4 DAYS Prov:SARAN COX [facility] 11/16/24 Ibuprofen (Ibuprofen) 800 Mg Tab, 1 TAB PO TID PRN, #30 TAB 0 Refills Prov:CAROL HERNANDEZ 10/21/24 Amoxicillin & Pot Clavulanate (Amoxicillin/Potassium Cla) 875 Mg Tab, 1 TAB PO BID for 7 Days, #14 TAB 0 Refills Prov:CAROL HERNANDEZ 10/21/24 Mometasone Furoate-Formoterol (Dulera) 1 Aer Aer, 2 PUFF INH BID, #13 GRAMS Prov:MARLIN SIMPSON ME 08/29/24 Albuterol Sulfate (VENTOLIN MDI) 90 Mcg Ih, 2 PUFF IN Q6HPRN, #1 INH 0 Refills Prov:MARLIN SIMPSON ME 08/29/24 Prednisone (Prednisone) 20 Mg Tab, 40 MG PO DAILY for 5 Days, #10 MG Prov:TREVA FIGUEROA [facility] 01/04/24 Albuterol Sulfate (VENTOLIN MDI) 90 Mcg Ih, 90 MCG IN Q4HPRN PRN for 7 Days, #1 INH Prov:PEARL BORGES [facility] 11/17/23 Benzonatate (Benzonatate) 200 Mg Cap, 1 CAP PO TID PRN for 10 Days, #30 CAP Prov:PEARL BORGES [facility] 11/17/23 Azithromycin (Azithromycin) 250 Mg Tab, 250 MG PO DAILY MDD 500 for 5 Days, #6 TAB 0 Refills 2 TABLETS ORALLY ON DAY ONE, THEN 1 TABLET ORALLY DAILY FOR 4 DAYS Prov:PEARL BORGES [facility] 11/17/23 Hydrocodone-Acetaminophen (Hydrocodone Bitartrate/AC 5-325 mg) 1 Tab Tab, 1 TAB PO QIDP, #20 TAB Prov:[place] [facility] 09/23/22 Ibuprofen Micronized (Ibuprofen) 800 Mg Tab, 800 MG PO TID, #30 TAB Prov:[place] [facility] 09/23/22 Information Source: Patient Mode of Arrival: Ambulatory Severity: Moderate Timing: Hours Duration: Since onset Prehospital treatment: None Past Medical History PAST MEDICAL HISTORY: Anxiety, Asthma, Depression Surgical History: Denies all surgeries Family History Family History: Reviewed,noncontributory to illness Social History Smoker: Non-Smoker Alcohol: Denies ETOH Use Drugs: Cocaine, Marijuana Lives In: Home All Other Systems: Reviewed and Negative (As per HPI) Physical Exam General Appearance: No Apparent Distress, Normal HEENT: Normal ENT Inspection, Pharynx Normal, TMs Normal Neck: Full Range of Motion, Non-Tender, Normal, Normal Inspection Respiratory: Chest Non-Tender, Lungs Clear, No Accessory Muscle Use, No Respiratory Distress, Normal Breath Sounds Cardiovascular: No Edema, No JVD, No Murmur, No Gallop, Normal Peripheral Pulses, Regular Rate/Rhythm Breast Exam: Deferred Gastrointestinal: No Organomegaly, Non Tender, No Pulsatile Mass, Normal Bowel Sounds, Soft Genitalia: Deferred Pelvic: Deferred Rectal: Deferred Extremities: No calf tenderness, Normal capillary refill, Normal inspection, Normal range of motion, Non-tender, No pedal edema Neurologic: Alert, clinical nursing manager II-XII nml as Tested, No Motor Deficits, Normal Affect, Normal Mood, No Sensory Deficits Cerebellar Function: Normal Reflexes: Normal Skin: Dry, Normal Color, Warm Peripheral Pulses: 1+ carotid (R), 1+ carotid (L) Lymphatic: No Adenopathy Was a procedure done? Was a procedure done?: No Differential Dx Considerations may include: medication refill inquiry, pharyngitis, tonsillitis, viral syndrome, among others X-Ray, Labs, Meds, VS Vital Signs Date Time Temp Pulse Resp B/P (MAP) Pulse Ox O2 Delivery O2 Flow Rate FiO2 05/16/25 15:52 98.4 74 16 100/54 96 98.4 X-Ray, Labs, Meds, VS Comment Patient came in complaining of a sore throat in his refills of his medications Time of 1ST Reevaluation: 16:50 Reevaluation 1ST: Unchanged Time of 2ND Reevaluation: 18:00 Reevaluation 2ND: Improved Consultation: PCP Patient Education/Counseling: Diagnosis, Treatment, Prognosis, Need For Follow Up Family Education/Counseling: Diagnosis, Treatment, Prognosis, Need For Follow Up, No Family Present SEPSIS Sepsis Screen Date sepsis recognized/suspect: May 16, 2025 Time Sepsis recognized/suspect: 1551 Recent Procedure: No On Antibiotic Therapy: No Respiratory Rate >20: No Heart Rate >90: No Temp<36 C (96.8 F) or >38.3 C: No SBP <90 or MAP <65 mmHG: No New Acute Mental Status Change: No Is the patient on CPAP, BIPAP,: No Vital Signs Date Time Temp Pulse Resp B/P (MAP) Pulse Ox O2 Delivery O2 Flow Rate FiO2 05/16/25 15:52 98.4 74 16 100/54 96 98.4 Departure 1 Departure Time of Disposition: 16:38 Impression: Primary Impression: Acute asthma exacerbation Qualified Codes: J45.21 - Mild intermittent asthma with (acute) exacerbation Additional Impressions: Pharyngitis Qualified Codes: J02.9 - Acute pharyngitis, unspecified Cough with congestion of paranasal sinus Disposition: HOME / SELF CARE / HOMELESS Condition: Fair e-Prescriptions Azithromycin (Zithromax) 500 Mg Tab 1 TAB PO DAILY for 3 Days, #3 TAB Prov: HASMUKH GONZALEZ MD 05/16/25 Albuterol Sulfate (VENTOLIN MDI) 90 Mcg Ih 90 MCG IN TID for 15 Days, #1 INH Prov: HASMUKH GONZALEZ MD 05/16/25 Discharged With: Self Critical Care Note Critical Care Time?: No Stability Stability form required: No Heart Score Heart Score: Heart Score Response (Comments) Value History N/A 0 EKG N/A 0 Age N/A 0 Risk Factors N/A 0 Troponin N/A 0 Total 0 I personally scribed for HASMUKH GONZALEZ MD ([email or web address]) on 05/16/25 at 16:28. Electronically submitted by Cam Martinez ([email or web address]). HASMUKH GONZALEZ MD May 16, 2025 16:28
[2025-05-16] MEDS ORDERED: AZIT500T PO (16:40)
[2025-05-16] MEDS ORDERED: ALBUAER3 IN (16:40)
[2025-05-16 17:25] VITALS: BP 110/81; PULSE 72; RESP 18; TEMP 98.4; O2SAT 96
== END 2025-05-16 17:26 | disposition home or self-care (01) ==
LOC: ER 15:50
DX: J44.1 Chronic obstructive pulmonary disease with (acute) exacerbation (principal); J45.901 Unspecified asthma with (acute) exacerbation; J02.9 Acute pharyngitis, unspecified; R09.81 Nasal congestion; R50.9 Fever, unspecified; Z88.6 Allergy status to analgesic agent; Z76.0 Encounter for issue of repeat prescription

== ENCOUNTER 2025-08-14 13:54 | Emergency (ER) | payer SELFPAY ==
[~2025-08-14] VITALS: Ht 175.3 cm; Wt 54.1 kg
[~2025-08-14 13:54] MED LIST changes: +AZIT500T PO
--- NOTE | 2025-08-14 14:33 | ED.PDOC ---
History of Present Illness HPI Comments A 25 YEAR OLD MALE PRESENTS TO THE ED WITH COMPLAINT OF MEDICATION REFILL FOR ASTHMA MEDICATION. PATIENT STATES HE HAS A HISTORY OF ASTHMA AND RECENTLY RAN OUT OF HIS INHALER. PATIENT REPORTS HE USES A DULERA INHALER AND ALBUTEROL INHALER AND WOULD LIKE A MEDICATION REFILL FOR THESE MEDICATIONS. PATIENT DENIES FEVER, CHILLS, SHORTNESS OF BREATH, CHEST PAIN, ABDOMINAL PAIN, NAUSEA, VOMITING, HEADACHE, OR OTHER COMPLAINTS. NO OTHER SYMPTOMS OR MODIFYING FACTORS AT THIS TIME. PATIENT IS ALERT, ORIENTED X 4, AND HAS STEADY GAIT. Chief Complaint: Asthma Time Seen by MD: 13:56 Primary Care Provider: NONE Reviewed Notes: Nurses Notes, Medications, Allergies Allergies: Coded Allergies: Ibuprofen (Verified Allergy, Intermediate, 10/21/24) Per pateint only allergic to "Advil rapid relief" with reaction of mild rash. Patient states he does take ibuprofen without any reaction Home Meds Active Scripts Mometasone Furoate-Formoterol (Dulera) 1 Aer Aer, 2 PUFF INH BID, #13 GRAMS Prov:MARLIN SIMPSON 08/14/25 Albuterol Sulfate (VENTOLIN MDI) 90 Mcg Ih, 2 PUFF IN Q6HPRN, #1 INH 0 Refills Prov:MARLIN SIMPSON 08/14/25 Azithromycin (Zithromax) 500 Mg Tab, 1 TAB PO DAILY for 3 Days, #3 TAB Prov:HASMUKH GONZALEZ MD 05/16/25 Albuterol Sulfate (VENTOLIN MDI) 90 Mcg Ih, 90 MCG IN TID for 15 Days, #1 INH Prov:HASMUKH GONZALEZ MD 05/16/25 Naproxen (Naproxen) 500 Mg Tab, 500 MG PO BID, #30 TAB Prov:MARLIN SIMPSON 04/24/25 Methylprednisolone (Medrol Dosepak) 4 Mg Van, 4 MG PO UD, #21 TAB UAD Prov:MARLIN SIMPSON 04/24/25 Amoxicillin & Pot Clavulanate (AUGMENTIN TABLET) 875 Mg Tb, 875 MG PO BID, #28 TAB Prov:MARLIN SIMPSON 04/24/25 Albuterol Sulfate (Albuterol Sulfate Hfa) 108 Mcg/Act Aer, 108 MCG IN Q4HPRN PRN, #1 AER Prov:SARAN COX 02/11/25 Mometasone Furoate-Formoterol (Dulera) 1 Aer Aer, 2 PUFF INH BID for 30 Days, #13 GRAMS Prov:SARAN COX [employer] ADVIS[employer] 11/16/24 Azithromycin (Azithromycin) 250 Mg Tab, 250 MG PO DAILY MDD 500 for 5 Days, #6 TAB 0 Refills 2 TABLETS ORALLY ON DAY ONE, THEN 1 TABLET ORALLY DAILY FOR 4 DAYS Prov:SARAN COX [facility] 11/16/24 Ibuprofen (Ibuprofen) 800 Mg Tab, 1 TAB PO TID PRN, #30 TAB 0 Refills Prov:CAROL HERNANDEZ 10/21/24 Amoxicillin & Pot Clavulanate (Amoxicillin/Potassium Cla) 875 Mg Tab, 1 TAB PO BID for 7 Days, #14 TAB 0 Refills Prov:CAROL HERNANDEZ PA 10/21/24 Prednisone (Prednisone) 20 Mg Tab, 40 MG PO DAILY for 5 Days, #10 MG Prov:TREVA FIGUEROA [facility] 01/04/24 Albuterol Sulfate (VENTOLIN MDI) 90 Mcg Ih, 90 MCG IN Q4HPRN PRN for 7 Days, #1 INH Prov:PEARL BORGES [facility] 11/17/23 Benzonatate (Benzonatate) 200 Mg Cap, 1 CAP PO TID PRN for 10 Days, #30 CAP Prov:PEARL BORGES [facility] 11/17/23 Azithromycin (Azithromycin) 250 Mg Tab, 250 MG PO DAILY MDD 500 for 5 Days, #6 TAB 0 Refills 2 TABLETS ORALLY ON DAY ONE, THEN 1 TABLET ORALLY DAILY FOR 4 DAYS Prov:PEARL BORGES [facility] 11/17/23 Hydrocodone-Acetaminophen (Hydrocodone Bitartrate/AC 5-325 mg) 1 Tab Tab, 1 TAB PO QIDP, #20 TAB Prov:[place] [facility] 09/23/22 Ibuprofen Micronized (Ibuprofen) 800 Mg Tab, 800 MG PO TID, #30 TAB Prov:[place] [facility] 09/23/22 Information Source: Patient Mode of Arrival: Ambulatory Severity: None Timing: Days Duration: Since onset, Days Prehospital treatment: None Medication Refill: Ran out of Medication, For: Other (MEDICATION REFILL FOR ASTHMA MEDICATION) Past Medical History PAST MEDICAL HISTORY: Anxiety, Asthma, Depression Surgical History: Denies all surgeries Family History Family History: Reviewed,noncontributory to illness Social History Smoker: Non-Smoker Alcohol: Denies ETOH Use Drugs: Cocaine, Marijuana Lives In: Home Constitutional: denies: chills, diaphoresis, fatigue, fever, malaise, sweats, weakness, others EENTM: denies: blurred vision, double vision, ear bleeding, ear discharge, ear drainage, ear pain, ear ringing, eye pain, eye redness, hearing loss, mouth pain, mouth swelling, nasal discharge, nose bleeding, nose congestion, nose pain, photophobia, tearing, throat pain, throat swelling, voice changes, others Respiratory: denies: cough, hemoptysis, orthopnea, SOB at rest, shortness of breath, SOB with excertion, stridor, wheezing, others Cardiovascular: denies: chest pain, dizzy spells, diaphoresis, Dyspnea on exertion, edema, irregular heart beat, left arm pain, lightheadedness, palpitations, PND, syncope, others Gastrointestinal: denies: abdomen distended, abdominal pain, blood streaked bowels, constipated, diarrhea, dysphagia, difficulty swallowing, hematemesis, melena, nausea, poor appetite, poor fluid intake, rectal bleeding, rectal pain, vomiting, others Genitourinary: denies: burning, dysuria, flank pain, frequency, hematuria, incontinence, penile discharge, penile sore, pain, testicle pain, testicle swel ling, urgency, others Neurological: denies: dizziness, fainting, headache, left sided numbness, left sided weakness, numbness, paresthesia, pre-existing deficit, right sided numbness, right sided weakness, seizure, speech problems, tingling, tremors, weakness, others Musculoskeletal: denies: back pain, gout, joint pain, joint swelling, muscle pain, muscle stiffness, neck pain, others Integumetry: denies: bruises, change in color, change in hair/nails, dryness, laceration, lesions, lumps, rash, wounds, others Allergic/Immunocompromised: denies: Difficulty Healing, Frequent Infections, Hives, Itching, others Hematologic/Lymphatic: denies: anemia, blood clots, easy bleeding, easy bruising, swollen glands, others Endocrine: denies: excessive hunger, excessive sweating, excessive thirst, excessive urination, flushing, intolerance to cold, intolerance to heat, unexplained weight gain, unexplained weight loss, others Psychiatric: denies: anxiety, bipolar disorder, depression, hopeless, panic disorder, schizophrenia, sleepless, suicidal, others All Other Systems: Reviewed and Negative Physical Exam General Appearance: No Apparent Distress, Normal HEENT: Normal ENT Inspection, PERRL/EOMI, Pharynx Normal, TMs Normal Neck: Full Range of Motion, Non-Tender, Normal, Normal Inspection Respiratory: Chest Non-Tender, Lungs Clear, No Accessory Muscle Use, No Respiratory Distress, Normal Breath Sounds Cardiovascular: No Edema, No JVD, No Murmur, No Gallop, Normal Peripheral Pulses, Regular Rate/Rhythm Breast Exam: Deferred Gastrointestinal: No Organomegaly, Non Tender, No Pulsatile Mass, Normal Bowel Sounds, Soft Genitalia: Deferred Pelvic: Deferred Rectal: Deferred Extremities: No calf tenderness, Normal capillary refill, Normal inspection, Normal range of motion, Non-tender, No pedal edema Musculoskeletal : Apperance: Normal Neurologic: Alert, newspaper journalist II-XII nml as Tested, No Motor Deficits, Normal Affect, Normal Mood, No Sensory Deficits Cerebellar Function: Normal Reflexes: Normal Skin: Dry, Normal Color, Warm Peripheral Pulses: 2+ carotid (R), 2+ carotid (L) Lymphatic: No Adenopathy Was a procedure done? Was a procedure done?: No Differential Dx Considerations may include: MEDICATION REFILL, HISTORY OF ASTHMA X-Ray, Labs, Meds, VS Vital Signs Date Time Temp Pulse Resp B/P (MAP) Pulse Ox O2 Delivery O2 Flow Rate FiO2 08/14/25 13:55 99.0 107 15 102/72 96 99.0 X-Ray, Labs, Meds, VS Comment EXTERNAL MEDICAL RECORDS REVIEWED: [NONE] INDEPENDENT HISTORIANS: [NONE] SOCIAL DETERMINANTS OF HEALTH: [NONE] LABS ORDERED: NONE REVIEWED AND INTERPRETED RESULTS: NONE IMAGING ORDERED: NONE TREATMENTS ORDERED: NONE PROCEDURES PERFORMED: NONE CRITICAL CARE TIME: NONE I HAVE DISCUSSED THE PATIENT WITH THE ATTENDING PHYSICIAN DR. GARCIA AND HE AGREES WITH THE PATIENT'S PLAN OF CARE AND DISPOSITION. BASED ON HISTORY OF PRESENT ILLNESS, AND PHYSICAL EXAM, PATIENT WILL BE DISCHARGED HOME. DISCUSSED PLAN FOR DISCHARGE HOME WITH RX [DULERA INHALER AND ALBUTEROL INHALER]. MEDICATION WARNINGS GIVEN. SHARED DECISION MAKING: PATIENT INSTRUCTED TO FOLLOW UP WITH PRIMARY CARE PROVIDER IN 1-2 DAYS FOR RE-EVALUATION OF SYMPTOMS. PATIENT VERBALIZES UNDERSTANDING TO RETURN TO ED FOR NEW OR WORSENING SYMPTOMS OR IF FOLLOW UP WITH PCP CANNOT BE OBTAINED. PATIENT FEELS COMFORTABLE GOING HOME AT THIS TIME. ALL QUESTIONS ADDRESSED AT TIME OF DISCHARGE. Time of 1ST Reevaluation: 14:35 Reevaluation 1ST: Improved Patient Education/Counseling: Diagnosis, Treatment, Need For Follow Up Family Education/Counseling: Diagnosis, Treatment, Need For Follow Up Medical Screening: No EMC Exist At This Time SEPSIS Sepsis Screen Date sepsis recognized/suspect: Aug 14, 2025 Time Sepsis recognized/suspect: 1355 Recent Procedure: No On Antibiotic Therapy: No Respiratory Rate >20: No Heart Rate >90: Yes Temp<36 C (96.8 F) or >38.3 C: No SBP <90 or MAP <65 mmHG: No New Acute Mental Status Change: No Is the patient on CPAP, BIPAP,: No Vital Signs Date Time Temp Pulse Resp B/P (MAP) Pulse Ox O2 Delivery O2 Flow Rate FiO2 08/14/25 13:55 99.0 107 15 102/72 96 99.0 Departure 1 Departure Time of Disposition: 14:35 Impression: Primary Impression: Encounter for medication refill Additional Impression: History of asthma Disposition: 01 HOME / SELF CARE / HOMELESS Condition: Stable Additional Instructions: FOLLOW-UP WITH PCP IN 1 TO 2 DAYS. TAKE MEDICATIONS PRESCRIBED. RETURN TO ED FOR ANY NEW OR WORSENING SYMPTOMS. e-Prescriptions Mometasone Furoate-Formoterol (Dulera) 1 Aer Aer 2 PUFF INH BID, #13 GRAMS Prov: MARLIN SIMPSON 08/14/25 Albuterol Sulfate (VENTOLIN MDI) 90 Mcg Ih 2 PUFF IN Q6HPRN, #1 INH 0 Refills Prov: MARLIN SIMPSON 08/14/25 Discharged With: Self Critical Care Note Critical Care Time?: No Stability Stability form required: No I personally scribed for MARLIN SIMPSON ([email or web address]) on 08/14/25 at 14:33. Electronically submitted by Ender Mae ([email or web address]). MARLIN SIMPSON Aug 14, 2025 14:33
[2025-08-14 14:38] VITALS: BP 102/72; PULSE 107; RESP 15; TEMP 99; O2SAT 96
[2025-08-17] MEDS ORDERED: MOME1AER5 IN (15:50)
== END 2025-08-14 14:40 | disposition home or self-care (01) ==
LOC: ER 13:54
DX: J45.909 Unspecified asthma, uncomplicated (principal); F12.90 Cannabis use, unspecified, uncomplicated; F19.90 Other psychoactive substance use, unspecified, uncomplicated; F41.9 Anxiety disorder, unspecified; F32.A Depression, unspecified; Z79.899 Other long term (current) drug therapy; Z88.6 Allergy status to analgesic agent; Z76.0 Encounter for issue of repeat prescription; Z79.52 Long term (current) use of systemic steroids; Z79.51 Long term (current) use of inhaled steroids; Z79.1 Long term (current) use of non-steroidal anti-inflammatories (NSAID)